=== PATIENT | female | born 1950 | race Caucasian/White ===

== ENCOUNTER → 2017-02-15 | Outpatient (CLI) | payer BC | LOC: LAB 16:01 | DX: I73.9 Peripheral vascular disease, unspecified (principal); M79.673 Pain in unspecified foot; R20.9 Unspecified disturbances of skin sensation | CPT/HCPCS: 36415; 82565; 84520 ==

== ENCOUNTER → 2017-02-22 | Outpatient (CLI) | payer BC | LOC: LAB 08:49 | PROVIDERS: Nurse Practitioner Family | DX: R79.89 Other specified abnormal findings of blood chemistry (principal) | CPT/HCPCS: 36415; 80048 ==

== ENCOUNTER → 2017-02-24 | Outpatient (CLI) | payer BC ==
[2017-02-24 10:19] LABS: BUN/CREATININE RATIO 38 (0-10)
== END ==
LOC: LAB 08:56
PROVIDERS: Nurse Practitioner Family
DX: R79.89 Other specified abnormal findings of blood chemistry (principal)
CPT/HCPCS: 36415; 80048

== ENCOUNTER → 2017-03-04 | Outpatient (CLI) | payer BC | LOC: KOH-I 03-03 08:30 | DX: I73.9 Peripheral vascular disease, unspecified (principal); R20.9 Unspecified disturbances of skin sensation; M79.673 Pain in unspecified foot; I70.1 Atherosclerosis of renal artery; S32.9XXK Fracture of unspecified parts of lumbosacral spine and pelvis, subsequent encounter for fracture with nonunion | CPT/HCPCS: 75635; Q9963 ==

== ENCOUNTER → 2017-03-18 | Outpatient (CLI) | payer BC | LOC: CT 11:04 | DX: I70.1 Atherosclerosis of renal artery (principal); Z53.9 Procedure and treatment not carried out, unspecified reason | CPT/HCPCS: Q9962 ==

== ENCOUNTER → 2017-05-10 | Outpatient (CLI) | payer BC | LOC: KOH-I 10:03 | DX: R41.0 Disorientation, unspecified (principal); R25.1 Tremor, unspecified; R47.89 Other speech disturbances; R90.89 Other abnormal findings on diagnostic imaging of central nervous system | CPT/HCPCS: 70551 ==

== ENCOUNTER → 2017-08-02 | Outpatient (CLI) | payer BC ==
[2017-08-02 09:24] LABS: HEMOGLOBIN 12.4 gm/dl (12.3-15.3); RED BLOOD COUNT 3.69 M/UL (4.00-5.10); WHITE BLOOD COUNT 3.3 K/UL (4.5-11.0)
[2017-08-02 09:51] LABS: BUN/CREATININE RATIO 21 (0-10)
== END ==
LOC: LAB 08:50
PROVIDERS: Internal Medicine
DX: M05.79 Rheumatoid arthritis with rheumatoid factor of multiple sites without organ or systems involvement (principal); I10 Essential (primary) hypertension; Z79.899 Other long term (current) drug therapy
CPT/HCPCS: 36415; 80053; 85025; 86140